=== PATIENT | male | born 1955 | race Caucasian/White ===

== ENCOUNTER 2024-09-25 11:52 | Emergency (ER) | payer MEDICARE, SELFPAY ==
[2024-09-25 11:54] VITALS: BP 149/83; PULSE 80; RESP 18; TEMP 36.5; O2SAT 96; BMI 33.3
--- NOTE | 2024-09-25 12:07 | RAD_ITS ---
PROCEDURE: Left knee radiographs REASON FOR EXAM: Pain TECHNIQUE: Three views of the left knee COMPARISON: None. FINDINGS: See impression RAD/Knee 3 Views IMPRESSION: Negative for acute fracture or malalignment. No significant joint effusion. M ild patellofemoral compartment osteoarthritis. Patellar enthesopathy. Reading Location: [facility]
--- NOTE | 2024-09-25 12:10 | EDS_ITS ---
HPI <ROCIO Alexis - Last Filed: 09/25/24 14:33> History of Present Illness Chief Complaint: Lower Extremity Injury Narrative Narrative: Patient presenting today with pain in his left knee he has had over the past month. He reports that at night and with ambulation the pain is worse. The pain does somewhat radiate down the anterior aspect of his left lateral lin. He suspects he could have arthritis. He has not been evaluated yet for this pain and reports that yesterday it was worse, prompting him to come in today. He has been taking ibuprofen with minimal relief. He denies any fevers, chills, or injury to the area. PFSH <ROCIO Alexis - Last Filed: 09/25/24 14:33> [facility] Home Medications ?Medication ?Instructions ?Recorded ?Last Taken ?Type hydrocodone-acetaminophen 5-325mg 1 tab PO Q4H PRN PRN Pain 3 days 09/25/24 Unknown Rx 5mg-325mg #10 TABLETS Allergy/AdvReac Type Severity Reaction Status Date / Time No Known Allergies Allergy Verified 09/25/24 11:53 Social History Smoking Status: Never smoker ROS <ROCIO Alexis - Last Filed: 09/25/24 14:33> ROS ED Constitutional Constitutional ED: Denies chills or fever(s) Cardiovascular Cardiovascular: Denies chest pain Respiratory/Chest Respiratory/Chest: Denies dyspnea Gastrointestinal Gastrointestinal: Denies abdominal pain, nausea or vomiting Musculoskeletal Musculoskeletal: Reports arthralgias Integumentary Denies rash Neurologic Neurologic: Denies paresthesias or weakness EXAM <ROCIO Alexis - Last Filed: 09/25/24 14:33> Physical Exam Const Vital Signs: 09/25/24 11:54 Temperature 97.7 F L Temperature Source Oral Pulse Rate 80 Respiratory Rate 18 Blood Pressure 149/83 H Blood Pressure Mean 105 Pulse Ox 96 Oxygen Delivery Method Room Air Positive well nourished, well developed and no apparent distress General Appearance ED: well developed HEENT Reports normocephalic and head/scalp atraumatic Mouth ED: Yes moist mucous membranes normal Eyes PERRL and EOMs intact bilaterally Neck full ROM and supple Chest Wall inspection of chest normal Resp normal respiratory effort and clear to auscultation bilaterally Cardio regular rate and regular rhythm Back/Spine normal ROM and normal to inspection Extremity normal to inspection and full ROM Extremity Narrative: No joint effusion to the left knee, no warmth, erythema, or signs of infection. Extensor mechanism intact, he has range of motion to the knee. No asymmetric leg swelling, no palpable cord, no calf pain or swelling. Left DP pulse 2+, good cap refill, sensation intact. Neuro oriented x3, moves all extremities, no focal motor deficits and no sensory deficits noted Sensorium / Orientation: awake and alert Psych mental status grossly normal and thought process normal Skin no rashes or lesions noted and no wounds <Peña Quinonez MD - Last Filed: 09/25/24 16:32> Physical Exam Const Vital Signs: 09/25/24 11:54 Temperature 97.7 F L Temperature Source Oral Pulse Rate 80 Respiratory Rate 18 Blood Pressure 149/83 H Blood Pressure Mean 105 Pulse Ox 96 Oxygen Delivery Method Room Air MDM <ROCIO Alexis - Last Filed: 09/25/24 14:33> [employer] Narrative Medical decision making narrative: Patient presenting today with left knee pain he has had for the past month. Hurts worse at night and with ambulation. On exam, he has full range of motion of the knee, no joint effusion or signs of infection. No evidence of septic joint. He is able to ambulate without difficulty. He has no left calf pain or swelling to indicate DVT. He has intact pulses to his left lower extremity, exam is not consistent with ischemic limb. X-ray of the left knee obtained and is negative for fracture, shows mild patellofemoral arthritis and patellar enthesopathy. He has seen [facility] in the past, he will be given an Aurelio wrap here and referral for Ortho. He was given ibuprofen here for pain. I will give him a short course of [place] for home. RICE instructions were discussed. Patient discharged home in stable condition. Radiography X-Ray: Read by ED Physician Diagnostic Testing: Clinical Impression(s) from Imaging Studies Knee X-Ray 09/25/24 12:07 IMPRESSION: Negative for acute fracture or malalignment. No significant joint effusion. Mild patellofemoral compartment osteoarthritis. Patellar enthesopathy. Reading Location: [facility] <Peña Quinonez MD - Last Filed: 09/25/24 16:32> [facility] Radiography Diagnostic Testing: Clinical Impression(s) from Imaging Studies Knee X-Ray 09/25/24 12:07 IMPRESSION: Negative for acute fracture or malalignment. No significant joint effusion. Mild patellofemoral compartment osteoarthritis. Patellar enthesopathy. Reading Location: [facility] Treatment and Re-Evaluation Narrative: Dr. Quinonez: I have personally performed a face to face assessment of the patient and have reviewed the RUSSELL Note. I performed a substantive portion of the visit including all aspects of the following. My raphael findings include: History is left knee pain x 1 month. Worsened over the last 1 to 2 days. No trauma. Exam is GCS 15. ABCs intact. Focused examination reveals mild tenderness to palpation along the left lateral meniscal line. Flexion extension mechanism intact. Able to lift leg off bed without difficulty. No erythema or crepi tance. Neurovascularly intact distally. Medical Decision Making: Differential diagnosis includes but not limited to arthritis versus internal derangement including meniscal tear versus ligament strain. Check x-rays. On my independent interpretation of the left knee x- rays, there is evidence of osteoarthritis but no evidence of fracture. I reviewed the radiology report which confirms my independent interpretation. Patient will be placed in an Aurelio wrap and use [id number] cane as needed to help with ambulation. He will be given hydrocodone acetaminophen tablets and follow-up with orthopedics. He has seen [facility] in the past. I feel he be discharged to follow-up. Return instructions reviewed. Disposition is discharged home in stable condition. Other additions or changes: [None] Discharge Plan Triage Chief Complaint: Lower Extremity Injury ED Midlevel Provider: Joanne Quispe ED Provider: Peña Quinonez Dx/Rx/DC Orders Clinical Impression: Knee pain, left Instructions: Knee Pain Prescriptions: New hydrocodone-acetaminophen 5-325 mg tablet 1 tab PO Q4H PRN PRN (Reason: Pain) 3 Days Qty: 10 0RF Primary Care Provider: Celi Palmer NP Referrals: Adrian Haley DO [None] - NOT,DEFINED [Non-Staff] - Activity Restrictions/Additional Instructions: Follow-up with orthopedics. Print Language: American Disposition Disposition: Home, Self Care Discharge Date/Time: 09/25/24 13:12
[2024-09-25] MEDS: Ibuprofen 600 MG Tablet PO (12:20)
== END 2024-09-25 13:12 | disposition home or self-care (01) ==
PROVIDERS: Emergency Provider Emergency Medicine; PCP Registered Nurse; Visit Provider Emergency Medicine
DX: M25.562 Pain in left knee (principal); M76.52 Patellar tendinitis, left knee; M17.12 Unilateral primary osteoarthritis, left knee
CPT/HCPCS: 73562; 99282